=== PATIENT | female | born 1985 | race Two or more races ===

== ENCOUNTER 2025-05-14 18:59 | Emergency (ER) | payer BC ==
[~2025-05-14] VITALS: Ht 175.3 cm; Wt 68.9 kg
[2025-05-14 21:23] LABS: APPEARANCE,URINE CLEAR (CLEAR); BLOOD, URINE 1+ Ery/uL (NEGATIVE); LEUKOCYTE ESTERASE ,URINE 3+ (NEGATIVE); NITRITE, URINE NEGATIVE (NEGATIVE); UGLUCOSE NEGATIVE (NEGATIVE)
[2025-05-14 21:29] LABS: ADD URINE CULTURE YES
[2025-05-14] MEDS ORDERED: CEPH-570 PO (21:38)
[2025-05-14 22:02] VITALS: BP 100/69; TEMP 98; O2SAT 96
== END 2025-05-14 22:03 | disposition home or self-care (01) ==
LOC: ER 19:06
DX: T83.098A Other mechanical complication of other urinary catheter, initial encounter (principal); C20 Malignant neoplasm of rectum; N39.0 Urinary tract infection, site not specified; Z85.048 Personal history of other malignant neoplasm of rectum, rectosigmoid junction, and anus; Y92.89 Other specified places as the place of occurrence of the external cause
CPT/HCPCS: 81001; 87086-TC